=== PATIENT | male | born 1995 | race Two or more races ===

== ENCOUNTER 2021-06-19 09:09 | Outpatient (REF) | payer OTHER, SELFPAY ==
[2021-06-19 09:58] LABS: COVID-19 Test Positive (Negative)
== END 2021-06-19 09:10 | disposition home or self-care (01) ==
LOC: HO.LAB 09:09
PROVIDERS: Visit Provider Internal Medicine
DX: Z20.822 Contact with and (suspected) exposure to COVID-19 (principal)
CPT/HCPCS: 36415; 87635; C9803

== ENCOUNTER 2021-06-26 09:20 | Outpatient (REF) | payer OTHER, SELFPAY ==
[2021-06-26 11:47] LABS: Binax Internal Control QC Valid; Binax Now Covid-19 Ag Positive (Negative)
== END 2021-06-26 09:21 | disposition home or self-care (01) ==
LOC: HO.LAB 09:20
PROVIDERS: Visit Provider Internal Medicine
DX: Z20.822 Contact with and (suspected) exposure to COVID-19 (principal)
CPT/HCPCS: 36415; C9803

== ENCOUNTER 2021-06-28 11:24 | Outpatient (REF) | payer OTHER, SELFPAY | END 2021-06-28 11:25 | disposition home or self-care (01) | LOC: HO.LAB 11:24 | PROVIDERS: Visit Provider Internal Medicine | DX: Z13.89 Encounter for screening for other disorder (principal) ==

== ENCOUNTER 2021-10-22 18:12 | Emergency (ER) | payer OTHER, SELFPAY ==
[2021-10-22 19:14] VITALS: BP 119/77; PULSE 55; RESP 19; TEMP 36.6; O2SAT 99; BMI 25.1
--- NOTE | 2021-10-22 19:43 | ED.ANIMALBIT ---
HPI - Animal Bite General Chief Complaint: Animal Bite Stated Complaint: dog bite Time Seen by Provider: 10/22/21 19:42 Source: patient Mode of arrival: ambulatory Limitations: no limitations History of Present Illness HPI narrative: Patient presents to the emergency department for evaluation after a dog bite to his left hand. 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 He has a bite to his pinky finger. Over the knuckle of the 4th finger. And on the side of his index finger. No active bleeding. Denies any prior these vaccination. Rabies vaccination status of the dog is unknown at this time. Unsure of last tetanus vaccine. complaint: animal bite Onset (ago): hour(s) Animal: dog Description of animal: household pet (Not personal house) Mechanism: bite Context: unprovoked Associated symptoms: none Treatments prior to arrival: irrigation (Water and peroxide) Related Data Previous Rx's Medication Instructions Recorded amoxicillin 875 mg-potassium 1 tab PO Q12H 7 Days #14 tab 10/22/21 clavulanate 125 mg tablet Allergies Allergy/AdvReac Type Severity Reaction Status Date / Time No Known Allergies Allergy Unverified 03/03/20 19:48 [No Known Allergies*] Review of Systems Review of Systems: Skin: Positive lacerations from dog bite Yes all other systems are reviewed and are negative [facility] Past Medical History Attestation statement: The following information was validated with the patient. Source: old records reviewed Social History Social History Advance Directives: No Advance Directives Information Provided: No Physical Exam ED Vital Signs: Vital Signs - 24 hr 10/22/21 19:14 Temperature 98 F Pulse Rate 55 Respiratory Rate 19 Blood Pressure 119/77 Pulse Oximetry 99 BMI result Body Mass Index 25.1 Vital signs have been reviewed as normal and appeared to be correct. Blood pressure normal.? Heart rate normal.? Respiration rate normal. Temperature normal.? Oxygen saturation normal. Appearance: Alert.?Oriented to person, place and time. No acute distress.?Normal affect. Eyes: Pupils equal, round and reactive to light.? ENT: Pharynx normal.?? Neck: Normal inspection.? Neck supple.?? CVS: Heart sounds normal. Normal heart rate and rhythm.? Pulses normal.?? Respiratory: No respiratory distress.? Lung sounds clear to auscultation bilaterally?? Abdomen: Soft and non-tender. Skin: Left hand with superficial laceration to the right 5th digit, dorsal aspect, at the base of the nail bed, abrasion over the dorsal 4th PIP, and laceration to the radial aspect of the index finger. No active bleeding. Edges well approximated. Skin warm and dry.? Normal skin color.? ? Extremities: No lower extremity edema.? Neuro: Moves all extremities spontaneously. Sensation intact bilaterally. No motor deficits. Ambulates with normal steady gait. Course Course Course Narrative: Patient is a 26-year-old male no significant past medical history presenting for evaluation after dog bite. Wounds were cleansed with saline and peroxide. No active bleeding. Did not require suturing for closure. Applied bacitracin. Covered with clean dry dressing. Full AROM to left hand and digits, low suspicion for fracture dislocation, would defer x-ray imaging at this time. Tetanus vaccine updated. Offered rabies vaccination, however he declines at this time, plans to reach out to animal control services in addition to the personal clothing laundry aide to check vaccination status and whether dog is having symptoms. Advised that dog should be monitored for symptoms for 10 days if not vaccinated. Advised patient may return to the emergency department over the next few weeks if there is concern for rabies and he can receive vaccination. Patient provided with Augmentin, advised to complete the entire course. Discussed reasons to return back to the emergency department. All questions were answered. Patient was discharged home in stable condition. Discharge Plan Discharge Clinical Impression: Dog bite Patient Disposition: Home, Self-Care Instructions: Animal Bite (ED) Additional Instructions: You were offered vaccination against rabies, as the current status of the dog is unknown, however you declined. As we discussed, the likelihood is very low. You may reach out to the personal clothing laundry aide or Animal Services to further inquire about the vaccination status for current symptoms, the dog should be monitored for symptoms for 10 days. Also, as we discussed the incubation period rabies may be weeks or months. If you change your mind or have any concerns you may return back to the emergency department to receive the vaccination. Your tetanus vaccine was updated today. You were given a new prescription for an antibiotic, Augmentin, please take this twice daily for 7 days and complete the entire course. You should return to the emergency department with any new or concerning symptoms. If you develop fevers, chills, increased pain, swelling, redness, or drainage from the bites you should come back to the emergency department to have this evaluated. Prescriptions: New amoxicillin-pot clavulanate 875-125 mg tablet 1 tab PO Q12H 7 Days Qty: 14 0RF Interventions: ED Discharge Assessment Last Done: 10/22/21 20:08 Discharge Date/Time: 10/22/21 20:09
[2021-10-22] MEDS: Diphth,Pertus(ACell),Tet Adult 0.5 ML SYRINGE IM (19:56)
== END 2021-10-22 20:09 | disposition home or self-care (01) ==
PROVIDERS: Emergency Provider Emergency Medicine
DX: S60.572A Other superficial bite of hand of left hand, initial encounter (principal); S60.512A Abrasion of left hand, initial encounter; W54.0XXA Bitten by dog, initial encounter; Y93.9 Activity, unspecified; Y92.9 Unspecified place or not applicable; Y99.0 Civilian activity done for income or pay; Z79.899 Other long term (current) drug therapy
CPT/HCPCS: 90471; 90715; 99283; 99284

== ENCOUNTER → 2021-10-31 13:27 | Outpatient (BNVA) | payer OTHER, SELFPAY | PROVIDERS: Visit Provider Internal Medicine | DX: S61.452A Open bite of left hand, initial encounter (principal); W54.0XXA Bitten by dog, initial encounter | CPT/HCPCS: 99203 ==

== ENCOUNTER 2022-10-27 11:14 | Emergency (ER) | payer MEDICAID, SELFPAY ==
[2022-10-27] VITALS (8 sets, daily range): BP systolic 109–127; BP diastolic 61–80; PULSE 63–88; RESP 13–22; TEMP 37.1; O2SAT 97–100; BMI 24.4; BMI 25.4
--- NOTE | ~2022-10-27 | XR_ITS ---
EXAMINATION: Left humerus, elbow and forearm x-ray CLINICAL INFORMATION: Trauma COMPARISON: None. TECHNIQUE: One view of the left humerus, one view of the left elbow and one view of the left forearm FINDINGS: There is dislocation of the elbow with anterior displacement of the distal humerus with respect to the proximal radius and ulna. There are several faint high attenuation densities seen in the expected location of the humeral condyles questionable for small avulsion fracture fragments, donor site uncertain. No other fracture. The left shoulder and wrist joints are normal. There is a large elbow joint effusion. XR/XR forearm LT 2V IMPRESSION: Dislocated elbow with anterior displacement of the humeral condyles with respect to the proximal radius and ulna. Question small avulsion fracture fragments, donor site uncertain.
--- NOTE | ~2022-10-27 | XR_ITS ---
EXAMINATION: Left humerus, elbow and forearm x-ray CLINICAL INFORMATION: Trauma COMPARISON: None. TECHNIQUE: One view of the left humerus, one view of the left elbow and one view of the left forearm FINDINGS: There is dislocation of the elbow with anterior displacement of the distal humerus with respect to the proximal radius and ulna. There are several faint high attenuation densities seen in the expected location of the humeral condyles questionable for small avulsion fracture fragments, donor site uncertain. No other fracture. The left shoulder and wrist joints are normal. There is a large elbow joint effusion. XR/XR elbow LT 2V IMPRESSION: Dislocated elbow with anterior displacement of the humeral condyles with respect to the proximal radius and ulna. Question small avulsion fracture fragments, donor site uncertain.
--- NOTE | ~2022-10-27 | XR_ITS ---
EXAMINATION: Left humerus, elbow and forearm x-ray CLINICAL INFORMATION: Trauma COMPARISON: None. TECHNIQUE: One view of the left humerus, one view of the left elbow and one view of the left forearm FINDINGS: There is dislocation of the elbow with anterior displacement of the distal humerus with respect to the proximal radius and ulna. There are several faint high attenuation densities seen in the expected location of the humeral condyles questionable for small avulsion fracture fragments, donor site uncertain. No other fracture. The left shoulder and wrist joints are normal. There is a large elbow joint effusion. XR/XR humerus LT IMPRESSION: Dislocated elbow with anterior displacement of the humeral condyles with respect to the proximal radius and ulna. Question small avulsion fracture fragments, donor site uncertain.
--- NOTE | ~2022-10-27 | XR_ITS ---
EXAMINATION: XR ELBOW, LEFT CLINICAL INFORMATION: Post reduction COMPARISON: None available. TECHNIQUE: Lateral view of the left elbow. FINDINGS: There is normal elbow alignment. No fracture is seen. There is an elbow joint effusion. There is a posterior splint. XR/XR elbow LT min 3V IMPRESSION: Normal elbow alignment. No fracture seen.
[2022-10-27] MEDS: Morphine Sulfate 4 MG/ML CARTRIDGE IVPUSH ×2 (11:54→12:25)
[2022-10-27] MEDS: ondansetron HCL 4 MG/2 ML VIAL IVPUSH (11:55)
--- NOTE | 2022-10-27 11:59 | PC.NURSE ---
Patient presents after injury playing flag football. Patient was running down the field at full speed when he fell and went to brace himself with his left hand/arm and dislocated felt his elbow pop. Arm is noticeably deformed upon inspection. Patient is significant pain at this time, medicated per MAR.
--- NOTE | 2022-10-27 12:51 | ED.EXTPRO ---
HPI - Extremity Problem General Chief complaint: Extremity Injury, Upper <Leslee Kowalski NP - Last Filed: 10/27/22 15:41> Stated complaint: l elbow inj fell <Leslee Kowalski NP - Last Filed: 10/27/22 15:41> Time Seen by Provider: 10/27/22 11:30 <Leslee Kowalski NP - Last Filed: 10/27/22 15:41> Source: patient and family <GATO Seay Last Filed: 10/27/22 15:41> Mode of arrival: ambulatory <GATO Seay Last Filed: 10/27/22 15:41> Limitations: no limitations <GATO Seay Last Filed: 10/27/22 15:41> History of Present Illness HPI Narrative: 27-year-old male bjbqk-sjej-exjsruhr here with left elbow pain. Patient reports he was playing flag football and he was running when he impacted with another player causing a FOOSH on the left side. Patient immediately heard a pop and felt pain in his left elbow. Patient denies any associated numbness or tingling of the extremity. He denies any other injury. He denies head strike or loss of consciousness. <GATO Seay Last Filed: 10/27/22 15:41> Related Data Home medications: Previous Rx's Medication Instructions Recorded amoxicillin 875 mg-potassium 1 tab PO Q12H 7 days #14 tabs 10/22/21 clavulanate 125 mg tablet ibuprofen 600 mg tablet 600 mg PO Q8H PRN pain #30 tabs 10/27/22 oxycodone 5 mg tablet 5 mg PO Q8H PRN pain #8 tabs 10/27/22 <Leslee Kowalski NP - Last Filed: 10/27/22 15:41> Allergies/Adverse reactions: Allergies Allergy/AdvReac Type Severity Reaction Status Date / Time No Known Allergies Allergy Unverified 03/03/20 19:48 [No Known Allergies*] <GATO Seay Last Filed: 10/27/22 15:41> Review of Systems Review of Systems: Yes all other systems are reviewed and are negative <Leslee Kowalski [employer] - Last Filed: 10/27/22 15:41> Constitutional: Constitutional: Reports no additional constitutional complaints, Denies body ache(s), Denies chills, Denies fever(s), Denies headache(s) and Denies weakness <Leslee Kowalski [employer] - Last Filed: 10/27/22 15:41> Eyes: Eyes: Reports no additional eye complaints and Denies change in vision <Leslee Kowalski [employer] TE[employer]ER - Last Filed: 10/27/22 15:41> ENT: Reports system reviewed and no additional complaints, except as documented, Denies dizziness, Denies headache(s), Denies nasal congestion, Denies nasal discharge and Denies neck pain <Leslee Kowalski [employer] - Last Filed: 10/27/22 15:41> Cardiovascular: Cardiovascular: Reports no additional cardiovascular complaints, Denies chest pain, Denies leg edema and Denies dyspnea <Leslee Kowalski [employer] TE[employer]ER - Last Filed: 10/27/22 15:41> Respiratory: Respiratory: Reports no additional respiratory complaints, Denies cough and Denies dyspnea <Leslee Kowalski [employer] TE[employer]ER - Last Filed: 10/27/22 15:41> Gastrointestinal: Gastrointestinal: Reports no additional gastrointestinal complaints, Denies abdominal pain, Denies diarrhea, Denies nausea and Denies vomiting <Leslee Kowalski [employer] TE[employer]ER - Last Filed: 10/27/22 15:41> Genitourinary: Genitourinary: Denies urinary incontinence <Leslee Kowalski [employer] TE[employer]ER - Last Filed: 10/27/22 15:41> Musculoskeletal: Musculoskeletal: Reports no additional musculoskeletal complaints, Denies back pain, Reports arthralgias, Reports joint swelling, Reports limited range of motion, Denies neck pain, Denies numbness and Denies tingling <Leslee Kowalski [employer] TE[employer]ER - Last Filed: 10/27/22 15:41> Integumentary/Breasts: Skin/Breast: Reports system reviewed and no additional complaints, except as docu and Denies rash <Leslee Kowalski [employer] - Last Filed: 10/27/22 15:41> Neurologic: Reports system reviewed and no additional complaints, except as documented, Denies Abnormal speech present, Denies dizziness, Denies headache(s), Denies numbness, Denies tingling and Denies weakness <Leslee Kowalski NP - Last Filed: 10/27/22 15:41> [facility] Past Medical History Attestation statement: The following information was validated with the patient. <Leslee Kowalski NP - Last Filed: 10/27/22 15:41> Source: old records reviewed and nursing notes reviewed <Leslee Kowalski NP - Last Filed: 10/27/22 15:41> Social History Social History: Social History Advance Directives: No Advance Directives Information Provided: No <Lselee Kowalski NP - Last Filed: 10/27/22 15:41> Physical Exam Vital Signs: Vital Signs: Last Vital Signs Temp 98.7 F 10/27/22 11:21 Pulse 69 10/27/22 14:05 Resp 14 10/27/22 14:05 BP 116/78 10/27/22 14:05 Pulse Ox 97 10/27/22 14:05 O2 Del Method Room Air 10/27/22 14:05 BMI result Body Mass Index 25.4 <Leslee Kowalski NP - Last Filed: 10/27/22 15:41> Vital Signs: Last Vital Signs Temp 98.7 F 10/27/22 11:21 Pulse 69 10/27/22 14:05 Resp 14 10/27/22 14:05 BP 116/78 10/27/22 14:05 Pulse Ox 97 10/27/22 14:05 O2 Del Method Room Air 10/27/22 14:05 BMI result Body Mass Index 25.4 <Evangelista Luong MD - Last Filed: 10/27/22 13:28> Vital Signs: Last Vital Signs Temp 98.7 F 10/27/22 11:21 Pulse 69 10/27/22 14:05 Resp 14 10/27/22 14:05 BP 116/78 10/27/22 14:05 Pulse Ox 97 10/27/22 14:05 O2 Del Method Room Air 10/27/22 14:05 BMI result Body Mass Index 25.4 <Leeann Carrizales PA - Last Filed: 10/27/22 15:33> Const: Other: In pain <Leslee Kowalski [employer] - Last Filed: 10/27/22 15:41> General: alert <Leslee Kowalski [employer] - Last Filed: 10/27/22 15:41> Orientation/consciousness: patient oriented x3 <Leslee Kowalski [employer] - Last Filed: 10/27/22 15:41> Limitations: no limitations <Leslee Kowalski [employer] TE[employer] - Last Filed: 10/27/22 15:41> HEENT: Head: Yes normal to inspection <Leslee Kowalski [employer] TE[employer] - Last Filed: 10/27/22 15:41> Ears: hearing grossly normal bilaterally <Leslee Kowalski [employer] TE[employer] - Last Filed: 10/27/22 15:41> General nose exam: Normal external nose present <Leslee Kowalski NP - Last Filed: 10/27/22 15:41> Face and sinus: Yes normal facial exam <Leslee Kowalski [employer] TE[employer] - Last Filed: 10/27/22 15:41> Mouth: Normal oral and palatal mucosa present <Leslee Kowalski [employer] TE[employer]ER - Last Filed: 10/27/22 15:41> Throat: Yes posterior oropharynx normal <Leslee Kowalski [employer] TE[employer] - Last Filed: 10/27/22 15:41> Eyes: General: appearance normal, both eyes and all related structures <Leslee Kowalski [employer] TE[employer] - Last Filed: 10/27/22 15:41> Pupils: Equal, round and reactive pupils present <Leslee Kowalski [employer] TE[employer]ER - Last Filed: 10/27/22 15:41> Neck: Neck: Yes normal visual inspection <Leslee Kowalski NP - Last Filed: 10/27/22 15:41> Chest: Chest palpation & inspection: normal inspection of the chest <Leslee Kowalski [employer] TE[employer] - Last Filed: 10/27/22 15:41> Resp: Effort & Inspection: normal respiratory effort <Leslee Kowalski [employer] TE[employer]ER - Last Filed: 10/27/22 15:41> Auscultation: clear to auscultation bilaterally <Leslee Meghana, [employer] TEACHER - Last Filed: 10/27/22 15:41> Cardio: Rate: regular rate <Leslee Meghana, [employer] TE[employer]ER - Last Filed: 10/27/22 15:41> Rhythm: regular rhythm <Leslee Meghana, [employer] TEACHER - Last Filed: 10/27/22 15:41> Peripheral pulses: Peripheral pulses 2+ throughout <Leslee Meghana, [employer] TE[employer]ER - Last Filed: 10/27/22 15:41> GI: Inspection: Yes normal to inspection <Leslee Meghana, [employer] TE[employer]ER - Last Filed: 10/27/22 15:41> Palpation (GI): Soft to palpation and nontender <Leslee Meghana, [employer] TE[employer]ER - Last Filed: 10/27/22 15:41> Auscultation: normal bowel sounds <Leslee Meghana, [employer] TEACHER - Last Filed: 10/27/22 15:41> Back/Spine/Pelvis: Thoracic/Lumbar Spine: thoracic and lumbar spine normal to inspection <Leslee Meghana, [employer] TE[employer]ER - Last Filed: 10/27/22 15:41> Skin: General skin exam: no rashes or lesions noted <Leslee Meghana, [employer] TEACHER - Last Filed: 10/27/22 15:41> Neuro: General: patient oriented x3, no focal motor deficits and normal sensation to monofilament <Leslee Meghana, [employer] TE[employer]ER - Last Filed: 10/27/22 15:41> Cranial nerves: Yes Equal, round and reactive pupils present <Leslee Meghana, [employer] TE[employer]ER - Last Filed: 10/27/22 15:41> Cognition (Neuro): normal cognition <Leslee Hilarioi, [employer] TE[employer]ER - Last Filed: 10/27/22 15:41> Speech: No Abnormal speech present <Leslee Hilarioi, [employer] TE[employer]ER - Last Filed: 10/27/22 15:41> Gait exam (Neuro): Normal gait present <Leslee Meghana, [employer] TE[employer]ER - Last Filed: 10/27/22 15:41> Motor exam (neuro): 5/5 motor strength present throughout <Leslee Pascucci, [employer] TE[employer]ER - Last Filed: 10/27/22 15:41> Extrem: Other: Patient is holding the left elbow in a guarded flexed position. There is obvious deformity of the elbow noted. There are palpable radial and ulnar pulses. Normal sensation over the hand. No palpable tenderness over the left wrist, hand or shoulder. Unable to assess range of motion due to pain. <Leslee Kowalski NP - Last Filed: 10/27/22 15:41> Course Course Course Narrative: 1230-I independently reviewed the x-rays which show a dislocation of the elbow. Waiting for formal read. Patient giving additional 4 mg of morphine. Attending physician in charge nurse aware that patient will likely need conscious sedation. Patient last had water at 10:30 this morning. No p.o. food since midnight Patient brought to main ER and reduction was done by Leeann PARRISH and Dr Luong <Leslee Kowalski NP - Last Filed: 10/27/22 15:41> Reevaluation(s) Reevaluation #1: 27-year-old male status post right elbow dislocation after football game, patient required conscious sedation procedure and reduction please refer to my notes <Evangelista Luong MD - Last Filed: 10/27/22 13:28> 27-year-old male status post right elbow dislocation after football game, patient required conscious sedation procedure and reduction please refer to my notes. <FRANCOIS Harding - Last Filed: 10/27/22 15:33> Time: 13:25 <Evangelista Luong MD - Last Filed: 10/27/22 13:28> Reevaluation #2: 1500-patient awake, tolerating p.o. ambulating with steady gait. Discharged in the care of his family <Leslee Kowalski NP - Last Filed: 10/27/22 15:41> Medications Administered Discontinued Medications Generic Name Dose Route Start Last Admin Trade Name Israelq PRN Reason Stop Dose Admin Morphine Sulfate 4 mg 10/27/22 11:33 10/27/22 11:54 Morphine Sulfate 4 Mg/Ml Cartridge IVPUSH 10/27/22 11:34 4 mg ONCE ONE Administration Protocol Morphine Sulfate 4 mg 10/27/22 12:19 10/27/22 12:25 Morphine Sulfate 4 Mg/Ml Cartridge IVPUSH 10/27/22 12:20 4 mg ONCE ONE Administration Protocol Ondansetron HCl 4 mg 10/27/22 11:33 10/27/22 11:55 Ondansetron Hcl 4 Mg/2 Ml Vial IVPUSH 10/27/22 11:34 4 mg ONCE ONE Administration Propofol 100 mg 10/27/22 13:28 10/27/22 13:40 Propofol 200 Mg/20 Ml Vial IVPUSH 10/27/22 13:29 100 mg ONCE ONE Administration <Leslee Kowalski NP - Last Filed: 10/27/22 15:41> Medications Administered Discontinued Medications Generic Name Dose Route Start Last Admin Trade Name Freq PRN Reason Stop Dose Admin Morphine Sulfate 4 mg 10/27/22 11:33 10/27/22 11:54 Morphine Sulfate 4 Mg/Ml Cartridge IVPUSH 10/27/22 11:34 4 mg ONCE ONE Administration Protocol Morphine Sulfate 4 mg 10/27/22 12:19 10/27/22 12:25 Morphine Sulfate 4 Mg/Ml Cartridge IVPUSH 10/27/22 12:20 4 mg ONCE ONE Administration Protocol Ondansetron HCl 4 mg 10/27/22 11:33 10/27/22 11:55 Ondansetron Hcl 4 Mg/2 Ml Vial IVPUSH 10/27/22 11:34 4 mg ONCE ONE Administration Propofol 100 mg 10/27/22 13:28 10/27/22 13:40 Propofol 200 Mg/20 Ml Vial IVPUSH 10/27/22 13:29 100 mg ONCE ONE Administration <Evangelista Luong MD - Last Filed: 10/27/22 13:28> Medications Administered Discontinued Medications Generic Name Dose Route Start Last Admin Trade Name Freq PRN Reason Stop Dose Admin Morphine Sulfate 4 mg 10/27/22 11:33 10/27/22 11:54 Morphine Sulfate 4 Mg/Ml Cartridge IVPUSH 10/27/22 11:34 4 mg ONCE ONE Administration Protocol Morphine Sulfate 4 mg 10/27/22 12:19 10/27/22 12:25 Morphine Sulfate 4 Mg/Ml Cartridge IVPUSH 10/27/22 12:20 4 mg ONCE ONE Administration Protocol Ondansetron HCl 4 mg 10/27/22 11:33 10/27/22 11:55 Ondansetron Hcl 4 Mg/2 Ml Vial IVPUSH 10/27/22 11:34 4 mg ONCE ONE Administration Propofol 100 mg 10/27/22 13:28 10/27/22 13:40 Propofol 200 Mg/20 Ml Vial IVPUSH 10/27/22 13:29 100 mg ONCE ONE Administration <FRANCOIS Harding - Last Filed: 10/27/22 15:33> Medical Decision Making Medical Decision Making MDM Narrative: 27-year-old male [id number]-ejwa-[id number] here with obvious deformity to the left elbow after a impact injury playing flag football with a FOOSH on the left side Concern for fracture or dislocation Patient does have intact CMS of the extremity distally Will need x-ray. Patient considerable pain and so I will order morphine and Zofran for him <Leslee Kowalski NP - Last Filed: 10/27/22 15:41> Differential Diagnosis Differential Diagnoses: The differential diagnosis associated with the presentation includes <Leslee Kowalski NP - Last Filed: 10/27/22 15:41> Fracture, dislocation Low concern for vascular injury <Leslee Kowalski NP - Last Filed: 10/27/22 15:41> Independent Interpretation I performed an independent interpretation of an: Plain X-Ray <Leslee Kowalski NP - Last Filed: 10/27/22 15:41> Interpretation: I initially reviewed the x-ray and agree with radiologist's report <Leslee Kowalski NP - Last Filed: 10/27/22 15:41> Radiology Impression Discussion of test interpretation with radiology: I have reviewed the radiologist's reading. <Leslee Kowalski NP - Last Filed: 10/27/22 15:41> Radiologist Impression: [address] [address] XRay Report Signed Patient: Jimy Jasso MR#: [id number] : 1995 Acct:[id number] Age/Sex: 27 / M ADM Date: 10/27/22 Loc: .ED Attending Dr: Ordering Physician: Leslee Paula NP Date of Service: 10/27/22 Procedure(s): XR humerus LT Accession Number(s): [id number] cc: Leslee Paula NP~ EXAMINATION: Left humerus, elbow and forearm x-ray CLINICAL INFORMATION: Trauma? COMPARISON: None.? TECHNIQUE: One view of the left humerus, one view of the left elbow and one view of the left forearm? FINDINGS: There is dislocation of the elbow with anterior displacement of the distal humerus with respect to the proximal radius and ulna. There are several faint high attenuation densities seen in the expected location of the humeral condyles questionable for small avulsion fracture fragments, donor site uncertain. No other fracture. The left shoulder and wrist joints are normal. There is a large elbow joint effusion. XR/XR humerus LT IMPRESSION: Dislocated elbow with anterior displacement of the humeral condyles with respect to the proximal radius and ulna. Question small avulsion fracture fragments, donor site uncertain.? <Leslee Kowalski NP - Last Filed: 10/27/22 15:41> Independent Historian Clinical information obtained from an independent historian. History obtained from or confirmed by: Parent <Leslee Kowalski NP - Last Filed: 10/27/22 15:41> Procedures Orthopedic Joint Reduction Joint #1: Time Out Performed: Yes <Evangelista Luong MD - Last Filed: 10/27/22 13:28> Side: left <Evangelista Luong MD - Last Filed: 10/27/22 13:28> Joint Reduction Location: elbow <Evangelista Luong MD - Last Filed: 10/27/22 13:28> Analgesia: procedural sedation <Evangelista Luong MD - Last Filed: 10/27/22 13:28> Technique used: traction/counter-traction <Evangelista Luong MD - Last Filed: 10/27/22 13:28> Post-reduction neuro exam: intact <Evangelista Luong MD - Last Filed: 10/27/22 13:28> Post-reduction vascular: intact <Evangelista Luong MD - Last Filed: 10/27/22 13:28> Post Reduction X-Ray Obtained: Yes <MD Jesse Alston Last Filed: 10/27/22 13:28> Post Reduction X-Ray Results: reduced <Evangelista Luong MD - Last Filed: 10/27/22 13:28> Splint Applied: Yes <Evangelista Luong MD - Last Filed: 10/27/22 13:28> Patient Tolerated Procedure: well <Evangelista Luong MD - Last Filed: 10/27/22 13:28> Additional Comments: Joint reduction performed by attending physician, Dr. Roberts and Leeann Carrizales PA-C <FRANCOIS Harding - Last Filed: 10/27/22 15:33> Orthopedic Splinting/Casting Injury #1: Side: left <Leslee Kowalski NP - Last Filed: 10/27/22 15:41> Upper Extremity Injury Location: elbow <Leslee Kowalski NP - Last Filed: 10/27/22 15:41> Upper Extremity Immobilizer: posterior splint <Leslee Kowalski NP - Last Filed: 10/27/22 15:41> Procedural Sedation Indication: fracture/dislocation reduction (Left elbow dislocation) <Evangelista Luong MD - Last Filed: 10/27/22 13:28> ASA Class: I <Evangelista Luong MD - Last Filed: 10/27/22 13:28> Mallampati Class: I <Evangelista Luong MD - Last Filed: 10/27/22 13:28> Time of Last PO Intake: 20:00 <Evangelista Luong MD - Last Filed: 10/27/22 13:28> Preparation: extrusion die repairer applied, pulse oximeter, capnometry used, supplemental O2 applied, reversal agents at bedside, suction/airway equipment at bedside and IV secured <Evangelista Luong MD - Last Filed: 10/27/22 13:28> IV Propofol dose (mg): 100 <Evangelista Luong MD - Last Filed: 10/27/22 13:28> Patient Tolerated Procedure: well and no complications <Evangelista Luong MD - Last Filed: 10/27/22 13:28> Complications: none <Evangelista Luong MD - Last Filed: 10/27/22 13:28> Discharge Plan Discharge Clinical Impression: Anterior dislocation of left elbow, Dislocation of left elbow <Leslee Kowalski NP - Last Filed: 10/27/22 15:41> Patient Disposition: Home, Self-Care <Leslee Kowalski NP - Last Filed: 10/27/22 15:41> Instructions: Elbow Dislocation (ED), Splint Care (ED) <Leslee Kowalski NP - Last Filed: 10/27/22 15:41> Prescriptions: New oxycodone 5 mg tablet 5 mg PO Q8H PRN (Reason: pain) Qty: 8 0RF Rx Instructions: Partial Fill upon patient request. ibuprofen 600 mg tablet 600 mg PO Q8H PRN (Reason: pain) Qty: 30 0RF No Action amoxicillin-pot clavulanate 875-125 mg tablet 1 tab PO Q12H 7 Days Qty: 14 0RF <Leslee Kowalski NP - Last Filed: 10/27/22 15:41> Referrals: [facility] [place] [facility] [Provider Group] - 1 week Al Florez MD [Physician] - <Leslee Kowalski NP - Last Filed: 10/27/22 15:41> Stand Alone Forms: Work/School Release <Leslee Kowalski NP - Last Filed: 10/27/22 15:41> Interventions: ED Discharge Assessment Last Done: 10/27/22 14:51 <Leslee Kowalski NP - Last Filed: 10/27/22 15:41> Discharge Date/Time: 10/27/22 14:52 <Leslee Kowalski NP - Last Filed: 10/27/22 15:41>
[2022-10-27] MEDS: propofoL 200 MG/20 ML VIAL 100 MG IVPUSH (13:40)
--- NOTE | 2022-10-27 13:41 | PC.NURSE ---
Alert and oriented, awake speaking in full clear sentences to family at bedside.
== END 2022-10-27 14:52 | disposition home or self-care (01) ==
PROVIDERS: Emergency Provider Emergency Medicine
DX: S53.115A Anterior dislocation of left ulnohumeral joint, initial encounter (principal); W03.XXXA Other fall on same level due to collision with another person, initial encounter; Y93.62 Activity, american flag or touch football; Y92.328 Other athletic field as the place of occurrence of the external cause; Y99.9 Unspecified external cause status
CPT/HCPCS: 24605; 73060; 73070; 73080; 73090; 96374; 96375; 96376; 99283; 99284; 99285; J2270; J2405

== ENCOUNTER → 2022-11-08 12:32 | Outpatient (BNVA) | payer OTHER, SELFPAY | PROVIDERS: PCP Internal Medicine; Visit Provider Orthopaedic Surgery | DX: S53.105A Unspecified dislocation of left ulnohumeral joint, initial encounter (principal) | CPT/HCPCS: 99202 ==

== ENCOUNTER → 2022-11-22 12:05 | Outpatient (BNVA) | payer OTHER, SELFPAY | PROVIDERS: PCP Internal Medicine; Visit Provider Orthopaedic Surgery | DX: S53.105D Unspecified dislocation of left ulnohumeral joint, subsequent encounter (principal) | CPT/HCPCS: 99212 ==

== ENCOUNTER 2022-12-24 13:30 | Outpatient (RCR) | payer OTHER, SELFPAY ==
--- NOTE | 2022-12-07 14:59 | MHC.OT.EP ---
[address] [phone] Occupational Therapy Plan of Care Patient Name: Jimy Jasso Date of Evaluation: 12/07/22 Diagnosis: L ELBOW STIFFNESS S/P SIMPLE DISLOCATION Pain Location: L ELBOW, MEDIAL ELBOW PAINFREE AT REST 6-7/10 END RANGE FLEXION > END RANGE EXTENSION Pain Score: 0-7/10 Pain Scale Used: Numeric (0 - 10) Aggravating Factors: LIFTING DAUGHTER, WALL PUSH UPS Alleviating Factors: ICING < HEATING, NOT TAKING PAIN MEDICATION Assessment: MR JASSO IS 5 WEEKS S/P REDUCTION OF NON DOMINANT L ELBOW. HE SUSTAINED A FOOSH WHILE PLAYING FLAG FOOTBALL. HE IS CURRENTLY ABLE TO DO MOST ADLs AND IADLs, LIMITING HIS HEAVY LIFTING PER MD LIFTING RESTRICTIONS. HE STATES THAT HE IS ABLE TO LIFT HIS 30/35 POUND DAUGHTER WITH MILD DIFFICULTIES. PAIN IS REPORTED 3-4/10 WITH USE. UTILIZING ICE AND HEAT FOR PAIN MANAGEMENT. OVERALL, HE IS DOING WELL AND A BRIEF COURSE OF SKILLED OT IS WARRANTED TO ACHIEVE MAXIMUM FUNCTIONAL LEVEL, ADDRESSING AREAS MENTIONED BELOW. Frequency and Duration: The patient will be seen 1X/WEEK FOR 3 WEEKS Short Term Goals: IND HEP IND EDEMA MANAGEMENT STRATEGIES IND PROGRESSION OF HEP AND STRENGTHENING PROGRAM L ELBOW FLEX >140 DEGREES L GROSS GRASP >75 POUNDS TOLERATE LIFTING >30 POUNDS WITH <3/10 PAIN Residential Goals: SEE ABOVE Treatment Plan: Therapeutic Exercise Therapeutic Activity Home Exercise Program Splinting Neuro Re-ed Patient Education Desensitization/Sensory Re-ed Edema Control ADL Training Ultrasound NMES Iontophoresis Paraffin Fluidotherapy MHP Cold Packs Joint Mobilization Soft Tissue Mobilization Kinesiotaping Other (see comments) Electronically Signed By: STEFAN HARPER OTR/L Please Sign and return to therapist. Thank you once again for your referral.
--- NOTE | 2022-12-24 14:00 | MHC.OT.DC ---
[address] [phone] F: [phone] Occupational Therapy Discharge Note Patient Name: Jimy Jasso Provider: Al Florez Diagnosis: L ELBOW STIFFNESS S/P SIMPLE DISLOCATION Date of Surgery: Date of Evaluation: 12/07/22 Date of Discharge: Treatments to Date: 3 Cancellations to Date: 0 No Shows to Date: 0 Discharge Status: Achieved Goals Improved Function Independent with HEP Discharge Summary: MR JASSO HAS PROGRESSED WELL WITH IS OT RX SESSIONS. HE HAS GOOD UNDERSTANDING OF HEP AND PROGRESSION OF RX. LOW PAIN, NO LIMITATIONS WITH IADLs. ABLE TO CARE FOR/ COMMUNITY SUPPORT SPECIALIST 30 LB DAUGHTER. NO FURTHER OT SERVICES WARRANTED AT THIS TIME. STGs MET. D/C OT SERVICES. Electronically Signed By: YUMIKO GOYAL/Earlene Reviewed/agree with student documentation: N/A Therapist: Please Sign and return to therapist, thank you for your referral.
== END 2022-12-24 14:00 | disposition home or self-care (01) ==
LOC: HO.OT 13:30
PROVIDERS: PCP Internal Medicine; Visit Provider Orthopaedic Surgery
DX: S53.105D Unspecified dislocation of left ulnohumeral joint, subsequent encounter (principal)
CPT/HCPCS: 97110; 97165

== ENCOUNTER 2023-01-03 12:43 | Outpatient (AMB) | payer OTHER, SELFPAY ==
[2023-01-03 12:50] VITALS: BMI 24.4
--- NOTE | 2023-01-03 12:50 | A.OFFVIS_ITS ---
Intake Vital Signs 01/03/23 12:50 Height 5 ft 9 in Weight 165 lb BMI 24.4 Intake Visit Reasons: OV-LT elbow dislocation-F/U Intake Note: Jimy is a 27 year old right hand dominant male who presents for a ROM check of his left elbow after elbow dislocation on 10/27/22 while playing football. States he has completed O.T and has improved ROM. Allergies No Known Allergies [No Known Allergies*] Allergy (Unverified 01/03/23 12:52) HPI OV-LT elbow dislocation-F/U HPI Details Gibson is a 27 year old right hand dominant man who presents S/P left elbow reduction. He was playing flag football and took a FOOSH on 10/27/22, he was seen in the ED where his elbow was reduced. He says he is doing well and has been working on ROM exercises at home. He has completed his course of PT and has no complaints. 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 [facility] Surgical History H/O right knee surgery (~2011) Social History Patient Tobacco Use Status: Never used Tobacco Current occupational status: employed Current occupation: [employer] Review of Systems Const All systems reviewed & are unremarkable except as noted in HPI and below Physical Exam Vital Signs: BMI result Body Mass Index 24.4 Const General: no acute distress and alert Orientation/consciousness: patient oriented x3 Neuro General: patient oriented x3 Extrem Other: Left Elbow: 2-3 degrees loss of terminal extension Full ROM No pain Stable to stress testing No tenderness over elbow Psych Appearance: grossly normal Affect: normal affect Attitude: cooperative Assessment & Plan Assessment & Plan (1) Dislocation of left elbow: Code(s): S53.105A - Unspecified dislocation of left ulnohumeral joint, initial encounter Plan: This is a 27 year old man who presents S/P left elbow reduction, in the ED, DOS: 10/30/22. He is doing well, with no complaints and good ROM. He has completed PT and continues to perform exercises at home. I recommend he continue with his exercises. He can return to work without restrictions. He can follow up prn. Plan Scribed for Al Florez MD by Dsehawn Greene, medical office receptionist assistant, on 01/03/23 at 12:55 PM, EST. Coding Level of Care Code Est Pt Level 3 (15067) Diagnoses Dislocation of left elbow S53.105A
== END 2023-01-03 12:53 | disposition home or self-care (01) ==
PROVIDERS: PCP Internal Medicine; Visit Provider Orthopaedic Surgery
DX: S53.105A Unspecified dislocation of left ulnohumeral joint, initial encounter (principal)
CPT/HCPCS: 99213

== ENCOUNTER → 2023-01-03 12:43 | Outpatient (BNVA) | payer OTHER, SELFPAY | PROVIDERS: PCP Internal Medicine; Visit Provider Orthopaedic Surgery | DX: S53.105A Unspecified dislocation of left ulnohumeral joint, initial encounter (principal) | CPT/HCPCS: 99212 ==